=== PATIENT | female | born 1980 | race Caucasian/White ===

== ENCOUNTER 2016-08-28 22:02 | Emergency (ER) | payer SELFPAY ==
[2016-08-28 22:04] VITALS: BP 134/68; PULSE 90; RESP 16; TEMP 98.7; O2SAT 96
[2016-08-28] MEDS ORDERED: TETANUS/DIPHTHERIA TOXOID ADULT 0.5 ML VIAL IM ONE (23:45)
[2016-08-28] MEDS ORDERED: TOBRAMYCIN SULF 0.3% OPHT SOLN 5 ML BTL RIGHT EYE ONE (23:45)
[2016-08-28] MEDS ORDERED: PROPARACAINE HCL 0.5% OPHT SOLN 15 ML BTL RIGHT EYE ONE (23:45)
[2016-08-28] MEDS ORDERED: ACETAMINOPHEN/HYDROcodone 325 MG/5 MG TAB PO ONE (23:45)
[2016-08-28] MEDS ORDERED: TOBR0.3S RIGHT EYE (23:46)
--- NOTE | 2016-08-28 23:46 | PD ---
HPI Chief Complaint: Foreign Body Time Seen by Provider: 23:42 Travel History International Travel<30 days: No Contact w/Intl Traveler<30days: No Traveled to known affect area: No History of Present Illness HPI 36-year-old white female presents to emergency Department with complaints of right eye pain. She states that she's been having pain in her right eye after doing spackle work on her ceiling one week ago. She states that she had gotten something in her right eye. She states that it had seemed to work its way out on its own. She states that 1-2 days later her right eye started to bother her. There has progressively gotten worse. She has foreign body sensation, swelling, redness, tearing. Positive photosensitivity. Positive burning. No diplopia. No matting. She does not wear glasses or contacts. She is not up-to -date with immunizations. She states that she came in tonight because she could not tolerate the discomfort any longer. She has not seen her primary care doctor nor has she seen a eye doctor yet. PFSH Past Medical History Narrative Medical Spontaneous pneumothorax, Fibromyalgia, renal stent, renal failure, hypertension Cardiovascular Problems: Yes Chest Pain: Yes Diabetes: No Diminished Hearing: No Fibromyalgia: Yes Hypertension: Yes Respiratory: Yes (PNEUMOTHORAX) Immunizations Current: Yes Renal Failure: Yes (WHILE ) Tetanus Vaccination: > 5 Years Influenza Vaccination: No ?: Unknown LMP: 1 WEEK AGO : 4 Para: 3 Miscarriage: 1 Past Surgical History Section: Yes (X2) Genitourinary Surgery: Yes (STENTS IN KIDNEYS) Thoracic Surgery: Yes (CHEST TUBE) Family History Family Hypercholesterolemia: Yes Social History Alcohol Use: Yes Tobacco Use: Yes (1-2 PPD) Substance Use: Yes (HX OF) Allergies-Medications (Allergen,Severity, Reaction): Coded Allergies: Amoxicillin (Verified Allergy, Intermediate, SEVERE STOMACH CRAMPING, 08/28) Reported Meds & Prescriptions Reported Meds & Active Scripts Active Cyclogyl Opth Drops (Cyclopentolate HCl) 1% Soln 1 Drop RIGHT EYE BID Tobrex Opth Drops (Tobramycin Opth Drops) 0.3 % Soln 1 Drop RIGHT EYE Q6H Review of Systems Except as stated in HPI: all other systems reviewed are Neg General / Constitutional: No: Fever, Chills Eyes: Positive: Blurred Vision, Photophobia, Redness, Foreign Body Sensation, Pain, Tearing, Visual changes, No: Diploplia, Drainage HENT: Positive: Headaches, No: Sore Throat Cardiovascular: No: Chest Pain or Discomfort, Palpitations Respiratory: No: Cough, Shortness of Breath Physical Exam Narrative GENERAL: Well-developed, well-nourished in no acute distress. Nontoxic appearing. HEAD: Normocephalic, atraumatic. EYES: Pupils equal round and reactive. Extraocular motions intact. No scleral icterus. No injection or drainage in the left eye. The right eye is injected. There is some chemotic swelling of the sclera. Slight tearing. Fluorescein stain reveals no obvious corneal abrasion. She has mild superficial uptake both on the nasal and temporal aspects of the sclera. Lids are flipped and no foreign body seen. ENT: TMs clear without erythema. The external auditory canals clear. Nose: clear . Posterior pharynx is pink and moist. No tonsillar edema or exudate. Uvula midline. Airway patent. NECK: Trachea midline.Supple, nontender, moves head freely. No central bony tenderness or spasm. CARDIOVASCULAR: Regular rate and rhythm without murmurs, gallops, or rubs. RESPIRATORY: Clear to auscultation. Breath sounds equal bilaterally. No wheezes , rales, or rhonchi. GASTROINTESTINAL: Abdomen soft, non-tender, nondistended. No hepato-splenomegaly , or palpable masses. No guarding. EXTREMITIES: No clubbing, cyanosis, or edema. No joint tenderness, effusion, or edema noted. BACK: Nontender without deformity or crepitance. No flank tenderness. Data Data Last Documented VS Vital Signs Date Time Temp Pulse Resp B/P Pulse Ox O2 Delivery O2 Flow Rate FiO2 08/28/16 22:04 98.7 90 16 134/68 96 Orders Proparacaine 0.5% Opth Soln (Alcaine 0.5 (08/28/16 23:45) Tetanus/Diphtheria Tox Adult (Tetanus/Di (08/28/16 23:45) Acetamin-Hydrocod 325-5 Mg (Linwood 5-325 (08/28/16 23:45) Tobramycin 0.3% Opth Soln (Tobrex 0.3% O (08/28/16 23:45) Ondansetron Odt (Zofran Odt) (08/29/16 00:15) MDM Medical Decision Making Medical Screen Exam Complete: Yes Emergency Medical Condition: Yes Medical Record Reviewed: Yes Differential Diagnosis MDM: High Differential diagnoses: Acute conjunctivitis (bacterial, viral, allergic, traumatic), glaucoma, iritis, traumatic globe injury, foreign body, corneal abrasion, corneal ulcer, diabetic retinopathy, photokeratitis, herpes keratitis , CMV retinitis Narrative Course Patient's tetanus status updated. Alcaine is instilled in left eye. Tobramycin ophthalmic drops to the left eye. Lortab 5 a grams by mouth. I see no foreign body or ulceration. No corneal abrasion. Visual acuity noted on nursing chart. 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 Cool compresses. Tobramycin and Cyclogyl ophthalmic drops. Followup with an eye doctor in 1-2 days. Follow-up with a medical doctor one week. Return to the ER if any problems. Med/Other Pt SpecificInfo: Prescription(s) given Scripts Cyclopentolate Opth Drops (Cyclogyl Opth Drops)1% Soln1 Drop RIGHT EYE BID #1 ML Ref 0 Prov:Toni Elizabeth MD 08/29/16 Tobramycin Opth Drops (Tobrex Opth Drops)0.3 % Soln1 Drop RIGHT EYE Q6H #1 BOTTLE Prov:Toni Elizaebth MD 08/28/16 Disposition: 01 DISCHARGE HOME Condition: Stable Patricio Salas Aug 28, 2016 23:46
[2016-08-29] MEDS ORDERED: CYCL1%O RIGHT EYE (00:03)
[2016-08-29] MEDS ORDERED: ONDANSETRON ODT 4 MG TAB PO ONE (00:15)
== END 2016-08-29 00:36 | disposition home or self-care (01) ==
LOC: NEPD 22:02
DX: H15.001 Unspecified scleritis, right eye (principal); M79.7 Fibromyalgia; I10 Essential (primary) hypertension; F17.210 Nicotine dependence, cigarettes, uncomplicated; H20.9 Unspecified iridocyclitis; Z23 Encounter for immunization
CPT/HCPCS: 90471; 90714

== ENCOUNTER 2016-09-05 02:55 | Emergency (ER) | payer SELFPAY ==
[~2016-09-05] VITALS: Ht 152.4 cm; Wt 50.0 kg
[~2016-09-05 02:55] MED LIST: CYCL1%O RIGHT EYE; TOBR0.3S RIGHT EYE
[2016-09-05 02:58] VITALS: BP 109/55; PULSE 71; RESP 16; TEMP 98; O2SAT 96
[2016-09-05] MEDS ORDERED: ACETAMINOPHEN/HYDROcodone 325 MG/5 MG TAB PO ONE (03:15)
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
== END 2016-09-05 04:21 | disposition home or self-care (01) ==
LOC: NEPD 02:55
DX: R51 Headache (principal); M79.7 Fibromyalgia; I10 Essential (primary) hypertension; F17.210 Nicotine dependence, cigarettes, uncomplicated; S02.81XA Fracture of other specified skull and facial bones, right side, initial encounter for closed fracture; W50.0XXA Accidental hit or strike by another person, initial encounter; Y93.9 Activity, unspecified; Y92.9 Unspecified place or not applicable; Y99.9 Unspecified external cause status
CPT/HCPCS: 99283

== ENCOUNTER 2016-10-22 07:02 | Emergency (ER) | payer SELFPAY ==
[~2016-10-22] VITALS: Ht 162.6 cm; Wt 53.0 kg
[2016-10-22 07:11] VITALS: BP 154/86; PULSE 123; RESP 16; TEMP 98.9; O2SAT 96
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
[2016-10-22] MEDS ORDERED: SODIUM CHLOR 0.9% 1000 ML INJ 1,000 ML IV ONE (07:30)
[2016-10-22] MEDS ORDERED: diphenhydrAMINE HCL 25 MG CAP PO ONE (07:30)
[2016-10-22 07:48] LABS: AUTOMATED NEUTROPHIL # 8.7 TH/MM3 (1.8-7.7); BASOPHIL % 0.3 % (0.0-2.0); EOSINOPHIL % 0.1 % (0.0-4.0); HEMATOCRIT 38.9 % (35.0-46.0); HEMO FLAGS DIFF FINAL; LYMPH % 9.9 % (9.0-44.0); MEAN CELL VOLUME 79.8 FL (80.0-100.0); MEAN CORPUSCULAR HEMOGLOBIN 25.7 PG (27.0-34.0); MEAN CORPUSCULAR HGB CONC 32.3 % (32.0-36.0); MONO % 5.5 % (0.0-8.0); NEUT % 84.2 % (16.0-70.0); PLATELET COUNT 252 TH/MM3 (150-450); RED BLOOD COUNT 4.88 MIL/MM3 (4.00-5.30); RED CELL DISTRIBUTION WIDTH 17.1 % (11.6-17.2); WHITE BLOOD COUNT 10.3 TH/MM3 (4.0-11.0)
[2016-10-22 08:35] LABS: ALT (GPT) 21 U/L (10-53); ANION GAP 10 MEQ/L (5-15); AST (GOT) 23 U/L (15-37); BICARBONATE 22.3 MEQ/L (21.0-32.0); BLOOD UREA NITROGEN 15 MG/DL (7-18); CHLORIDE 103 MEQ/L (98-107); GLOMERULAR FILTRATION RATE 45 ML/MIN (>89); SODIUM (NA) 135 MEQ/L (136-145)
[2016-10-22 08:44] LABS: ALKALINE PHOSPHATASE 124 U/L (45-117); TOTAL BILIRUBIN ADULT 0.3 MG/DL (0.2-1.0)
[2016-10-22 09:30] VITALS: BP 151/72; PULSE 120; RESP 18; TEMP 99.2; O2SAT 96
[2016-10-22] MEDS ORDERED: NICOTINE 21 MG/24 HR PATCH T-DERMAL ONE (10:15)
[2016-10-22 13:13] VITALS: BP 116/76; PULSE 104; RESP 18; O2SAT 98
[2016-10-22 14:00] VITALS: BP 112/57; PULSE 98; RESP 18; O2SAT 98
[2016-10-22 18:00] VITALS: BP 109/58; PULSE 99; RESP 18
[2016-10-22] MEDS ORDERED: diphenhydrAMINE HCL 50 MG CAP PO ONE (23:00)
[2016-10-22 23:09] VITALS: BP 109/58; PULSE 94; RESP 18; O2SAT 98
[2016-10-23 02:31] VITALS: RESP 18
[2016-10-23 06:55] VITALS: BP 118/71; PULSE 87; RESP 18; O2SAT 99
[2016-10-23 09:25] LABS: BARBITURATES, URINE NEG (NEG); COCAINE, URINE POS (NEG)
[2016-10-23 09:27] LABS: AMPHETAMINE, URINE POS (NEG)
--- NOTE | 2016-10-23 09:55 | PD.CONS ---
Provisional Diagnosis Admission Date 10/22/2016 [place] I. 1. Polysubstance abuse including amphetamines and cocaine 2. Unspecified anxiety disorder Welches II. Deferred History of Present Illness Service Psychiatry Consult Requested By Emergency department Reason for Consult Hurd act Primary Care Physician No Primary Care Physician HPI Ms. Carpenter is a 36-year-old female with reported history of substance use disorder who presents under a Hurd act by law enforcement alleging psychotic symptoms. Reviewing the electronic medical record, I note that I saw the patient last August for a drug induced psychotic disorder. Patient seen and examined. Chart reviewed. Case discussed with nursing staff. On my examination this morning, the patient is clinically sober. Her thought process is linear and logical and there is no evidence of psychosis at this time. She says that she has relapsed to amphetamines and that anytime she uses these substances she becomes psychotic and ends up here. Presently she denies any audiovisual hallucinations, and I can elicit no delusional material. She denies any issues with low mood or elevated mood, nor can I elicit any depressive or hypomanic/manic symptoms. She denies any suicidal or homicidal ideation, intent or plan. She does admit to some occasional anxiety and panic, but it is difficult to isolate these symptoms from her substance use. The remainder of the psychiatric ROS is negative. The patient is requesting discharge from the psychiatric emergency room this morning. Past psychiatric history: The patient is not presently under the care of an outpatient psychiatrist. She was admitted here under Dr. Funes in June 2015. She denies any other history of psychiatric admissions. Denies a history of suicide attempts. Family history: Patient denies any family history of mental illness. Chemical dependency history: The patient reports a history of opiate abuse. More recently, she has been abusing amphetamines. No explanation for the cocaine in her urine. Social history: Patient reports that she has gotten a new job. She will start this job on Monday. 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 She has been from her for 4 years. She has 3 children who live with their grandmother. No legal history. No access to guns or firearms. Review of Systems Except as stated in HPI: all other systems reviewed are Neg Past Family Social History Coded Allergies: Amoxicillin (Verified Allergy, Intermediate, SEVERE STOMACH CRAMPING, 10/22) Past Medical History See EMR Discontinued Scripts Cyclopentolate Opth Drops (Cyclogyl Opth Drops)1% Soln1 Drop RIGHT EYE BID #1 ML Ref 0 Prov:Toni Elizabeth MD 08/29/16 Tobramycin Opth Drops (Tobrex Opth Drops)0.3 % Soln1 Drop RIGHT EYE Q6H #1 BOTTLE Prov:Toni Elizabeth MD 08/28/16 Patient's Strengths (min. 2) Attending to basic needs. Verbally fluent. Physical Exam Physical exam completed by ED provider. On my examination today, the patient appears to be in no acute physical distress. Attending to basic needs. Well- nourished and well-developed. No abnormal motor movements noted. Laboratories and vital signs reviewed: Vital Signs Vital Signs Date Time Temp Pulse Resp B/P Pulse Ox O2 Delivery O2 Flow Rate FiO2 10/23/16 06:55 87 18 118/71 99 10/22/16 14:00 Room Air 10/22/16 09:30 99.2 Lab Results Item Value Date Time White Blood Count 10.3 TH/MM3 10/22/16 0730 Hemoglobin 12.6 GM/DL 10/22/16 0730 Platelet Count 252 TH/MM3 10/22/16 0730 Sodium Level 135 MEQ/L L 10/22/16 0730 Potassium Level 4.0 MEQ/L 10/22/16 0730 Chloride Level 103 MEQ/L 10/22/16 0730 Carbon Dioxide Level 22.3 MEQ/L 10/22/16 0730 Blood Urea Nitrogen 15 MG/DL 10/22/16 0730 Creatinine 1.36 MG/DL H 10/22/16 0730 Aspartate Amino Transf (AST/SGOT) 23 U/L 10/22/16 0730 Alanine Aminotransferase (ALT/SGPT) 21 U/L 10/22/16 0730 Alkaline Phosphatase 124 U/L H 10/22/16 0730 Thyroid Stimulating Hormone 3rd Gen 1.670 uIU/ML 10/22/16 0730 Urine Amphetamines Screen POS H 10/23/16 0810 Urine Cocaine Screen POS H 10/23/16 0810 Ethyl Alcohol Level LESS THAN 3 MG/DL 10/22/16 0730 Mental Status Examination Patient is in hospital gown. She is well groomed. She is maintaining basic hygiene. She is awake and alert and oriented to person and hospital at least. No evidence of delirium. No abnormal motor movements noted. Speech is within normal limits for rate, tone and volume. Language and fund of knowledge seem average. Focus and concentration intact. Memory is grossly intact on clinical exam. Mood is fair and affect is full and reactive. Thought process linear. No loosening of associations. No evident delusions. Denies audiovisual hallucinations. Denies suicidal or homicidal ideation, intent or plan. Insight and judgment are fair. Assessment & Plan Problem List: (1) Polysubstance abuse ICD Code: F19.10 (2) Anxiety disorder ICD Code: F41.9 Assessment & Plan This is a 36-year-old female with psychiatric history as detailed above who presents under a Hurd act. Patient has a history of drug induced psychotic disorder, and I suspect that she was experiencing something similar on this presentation. Currently, her thought process is linear and logical and there is no evidence of ongoing psychosis. There is no evidence of any unstable mood disorder. The patient does describe some degree of anxiety which may be related to substance use or may be secondary to an underlying anxiety disorder. In any event, patient is presently denying suicidal or homicidal ideation. She appears to be attending to her basic needs. She does not meet Hurd act criteria after weighing the relevant factors and I have lifted the Hurd act. Patient psychiatrically clear for discharge from the ED. She will be provided with outpatient mental health referrals by the nurse. I have counseled the patient to abstain from substances of abuse and encouraged 12- step. I have counseled the patient regarding warning signs for me to return to the psychiatric emergency room as part of a general safety plan. Request HC Surrog/Guard Advoc?: No Problem Qualifiers (1) Anxiety disorder: Qualified Code: F41.9 - Anxiety disorder, unspecified type Олег Cox MD Oct 23, 2016 09:55
== END 2016-10-23 10:40 | disposition home or self-care (01) ==
LOC: NEPE 07:02 → NEPJ 10-23 10:40
DX: F19.950 Other psychoactive substance use, unspecified with psychoactive substance-induced psychotic disorder with delusions (principal); F17.200 Nicotine dependence, unspecified, uncomplicated; F41.9 Anxiety disorder, unspecified; I10 Essential (primary) hypertension
CPT/HCPCS: 80053; 80307; 84443; 85025; 99284; Q0163

== ENCOUNTER 2017-03-11 01:47 | Inpatient (IN) | payer OTHER ==
[2017-03-11] VITALS (21 sets, daily range): BP systolic 93–156; BP diastolic 54–100; PULSE 65–142; RESP 14–24; TEMP 97.9–99.2; O2SAT 96–100
[~2017-03-11] VITALS: Ht 162.6 cm; Wt 54.4 kg
[2017-03-11] MEDS ORDERED: SODIUM CHLOR 0.9% 1000 ML INJ 1,000 ML IV ONE (01:55)
[2017-03-11] MEDS ORDERED: LORazepam 2 MG/ML VIAL IV PUSH ONE ×2 (02:00→03:45)
[2017-03-11] MEDS ORDERED: SODIUM CHLORIDE 0.9% FLUSH 10 ML FLUSH IVF PRN (02:00)
--- NOTE | 2017-03-11 02:39 | PD ---
HPI Chief Complaint: Alcohol/Drug Intoxication Time Seen by Provider: 01:55 Travel History International Travel<30 days: No Contact w/Intl Traveler<30days: No Traveled to known affect area: No History of Present Illness HPI 36-year-old female presents to the emergency department by [facility] department for altered mental status and admitting to using methamphetamine and flakka. Patient is unable to provide other information or history. No report of injury or fall. Patient unable to provide any further information. [facility] Past Medical History Narrative Medical review of medical record and nursing noted identify patient has history of fibromyalgia hypertension pneumothorax chest tube ; alcohol use tobacco use methamphetamine use floppy use; nursing notes reviewed Cardiovascular Problems: Yes Chest Pain: Yes Diabetes: No Diminished Hearing: No Fibromyalgia: Yes Hypertension: Yes Respiratory: Yes (PNEUMOTHORAX) Immunizations Current: Yes Renal Failure: Yes (WHILE ) ?: Unknown : 4 Para: 3 Miscarriage: 1 Past Surgical History Section: Yes (X2) Genitourinary Surgery: Yes (STENTS IN KIDNEYS) Thoracic Surgery: Yes (CHEST TUBE) Family History Family Hypercholesterolemia: Yes Social History Alcohol Use: Yes Tobacco Use: Yes (1-2 PPD) Substance Use: Yes (METH, FLAKKA) Allergies-Medications (Allergen,Severity, Reaction): Coded Allergies: amoxicillin (Unverified Allergy, Intermediate, SEVERE STOMACH CRAMPING, ) Reported Meds & Prescriptions Reported Meds & Active Scripts Active No Active Prescriptions or Reported Medications Review of Systems ROS Limitations: Clinical Condition, Altered Mental Status, Poor Historian Except as stated in HPI: all other systems reviewed are Neg Physical Exam Narrative GENERAL: Well-developed well-nourished female combative fighting with medical staff requiring physical restraint and violent restraint application to protect patient from harming herself SKIN: Warm and dry. Diaphoretic HEAD: Normocephalic. Atraumatic without scalp soft tissue swelling or hematoma abrasion or laceration EYES: No scleral icterus. No injection or drainage. Pupils equal round reactive to light NECK: Supple, trachea midline. No JVD or lymphadenopathy. CARDIOVASCULAR: Increased Regular rate and rhythm without murmurs, gallops, or rubs. RESPIRATORY: Breath sounds equal bilaterally. No accessory muscle use. GASTROINTESTINAL: Abdomen soft, non-tender, nondistended. MUSCULOSKELETAL: No cyanosis, or edema. BACK: Nontender without obvious deformity. No CVA tenderness. Data Data Last Documented VS Vital Signs Date Time Temp Pulse Resp B/P (MAP) Pulse Ox O2 Delivery O2 Flow Rate FiO2 03/11/17 06:38 118 18 129/63 (85) 100 03/11/17 06:35 15.00 03/11/17 05:21 Room Air 03/11/17 01:54 99.2 Orders Orders Electrocardiogram (03/11/17 01:55) Basic Metabolic Panel (Bmp) (03/11/17 01:55) Complete Blood Count With Diff (03/11/17 01:55) Prothrombin Time / Inr (Pt) (03/11/17 01:55) Act Partial Throm Time (Ptt) (03/11/17 01:55) Urinalysis - C+S If Indicated (03/11/17 01:55) Chest, Single Ap (03/11/17 01:55) Blood Glucose (03/11/17 01:55) Iv Access Insert/Monitor (03/11/17 01:55) Ecg Monitoring (03/11/17 01:55) Oximetry (03/11/17 01:55) Sodium Chloride 0.9% Flush (Ns Flush) (03/11/17 02:00) Sodium Chlor 0.9% 1000 Ml Inj (Ns 1000 M (03/11/17 01:55) Drug Screen, Random Urine (03/11/17 01:55) Alcohol (Ethanol) (03/11/17 01:55) Salicylates (Aspirin) (03/11/17 01:55) Tylenol (Acetaminophen) (03/11/17 01:55) Restraints Violent (03/11/17 01:55) Lorazepam Inj (Ativan Inj) (03/11/17 02:00) Cath For Specimen (03/11/17 02:35) Lorazepam Inj (Ativan Inj) (03/11/17 03:45) Lorazepam Inj (Ativan Inj) (03/11/17 03:38) Haloperidol Inj (Haldol Inj) (03/11/17 04:45) Ct Brain W/O Iv Contrast(Rout) (03/11/17 ) Ed Urine Pregnancytest Poc (03/11/17 05:36) Propofol 1000 Mg/100 Ml Inj (Diprivan 10 (03/11/17 05:57) Midazolam Inj (Versed Inj) (03/11/17 06:31) Midazolam Inj (Versed Inj) (03/11/17 06:38) Admit Order (Ed Use Only) (03/11/17 ) Training Analyst / Telemetry DAMI.Q8H (03/11/17 06:39) Diet Npo (03/11/17 Breakfast) Activity Bed Rest (03/11/17 06:39) Notify Dr: Other (03/11/17 06:39) Labs Laboratory Tests Test 03/11/17 02:30 White Blood Count 15.1 TH/MM3 Red Blood Count 5.09 MIL/MM3 Hemoglobin 12.5 GM/DL Hematocrit 39.9 % Mean Corpuscular Volume 78.4 FL Mean Corpuscular Hemoglobin 24.5 PG Mean Corpuscular Hemoglobin Concent 31.3 % Red Cell Distribution Width 17.0 % Platelet Count 346 TH/MM3 Mean Platelet Volume 9.9 FL Neutrophils (%) (Auto) 56.8 % Lymphocytes (%) (Auto) 32.8 % Monocytes (%) (Auto) 8.9 % Eosinophils (%) (Auto) 0.9 % Basophils (%) (Auto) 0.6 % Neutrophils # (Auto) 8.6 TH/MM3 Lymphocytes # (Auto) 4.9 TH/MM3 Monocytes # (Auto) 1.3 TH/MM3 Eosinophils # (Auto) 0.1 TH/MM3 Basophils # (Auto) 0.1 TH/MM3 CBC Comment DIFF FINAL Differential Comment Prothrombin Time 10.5 SEC Prothromb Time International Ratio 1.0 RATIO Activated Partial Thromboplast Time 22.2 SEC Urine Color YELLOW Urine Turbidity CLEAR Urine pH 5.5 Urine Specific [place] 1.021 Urine Protein TRACE mg/dL Urine Glucose (UA) NEG mg/dL Urine Ketones TRACE mg/dL Urine Occult Blood NEG Urine Nitrite NEG Urine Bilirubin NEG Urine Urobilinogen 2.0 MG/DL Urine Leukocyte Esterase NEG Urine RBC 3 /hpf Urine WBC 1 /hpf Urine Squamous Epithelial Cells 1 /hpf Urine Hyaline Casts 47 /lpf Urine Mucus FEW /lpf Microscopic Urinalysis Comment CULT NOT INDICATED Blood Urea Nitrogen 15 MG/DL Creatinine 1.18 MG/DL Random Glucose 213 MG/DL Calcium Level 9.0 MG/DL Sodium Level 140 MEQ/L Potassium Level 4.4 MEQ/L Chloride Level 106 MEQ/L Carbon Dioxide Level 18.1 MEQ/L Anion Gap 16 MEQ/L Estimat Glomerular Filtration Rate 52 ML/MIN Salicylates Level 6.6 MG/DL Urine Opiates Screen POS Acetaminophen Level LESS THAN 2.0 MCG/ML Urine Barbiturates Screen NEG Urine Amphetamines Screen POS Urine Benzodiazepines Screen NEG Urine Cocaine Screen NEG Urine Cannabinoids Screen POS Ethyl Alcohol Level LESS THAN 3 MG/DL MDM Medical Decision Making Medical Screen Exam Complete: Yes Emergency Medical Condition: Yes Medical Record Reviewed: Yes Interpretation(s) EKG: Sinus tachycardia rate [address] elevation or injury pattern change noted Urine drug screen amphetamines marijuana opiates Last Impressions Chest X-Ray 03/11/17 0155 Signed Impressions: Service Date/Time: Saturday, March 11, 2017 02:13 - CONCLUSION: No acute cardiopulmonary disease identified. Roberto Schmitt MD Chest X-Ray 03/11/17 0000 Signed Impressions: Service Date/Time: Saturday, March 11, 2017 07:56 - CONCLUSION: 1. ETT in good position. NGT just be on the GE junction with side hole in the distal esophagus. 2. Otherwise, no acute abnormality or significant interval change. Zane Schwartz MD CBC & BMP Diagram 03/11/17 02:30 Calcium Level 9.0 Alcohol: Less than 3 [id number] hCG: Negative Differential Diagnosis Polysubstance ingestion, acute psychosis, altered mental status, metabolic disturbance, substance induced mood disorder Narrative Course Physical restraints placed to protect patient from harming herself and others; IV access obtained specimens collected and sent for resulting; patient administered Ativan 2 mg IV Patient given additional Ativan and Haldol to control agitation Patient remains agitated after fluids observation and oral doses of Ativan and a single dose of Haldol patient is not able to resolve her ingestant overdose and substance induced altered mentation/encephalopathy during her stay in the emergency department and will require admission at this time patient will be intubated and admitted to the ICU call placed to district wildlife manager Briefly discussed case with who accepts patient for admission is aware of plan for intubation Dr. Armstrong district wildlife manager at bedside well intubate patient due to being called to bedside of another patient. Patient is graciously accepted by the district wildlife manager service Critical Care Narrative Aggregate critical care time was minutes. Time to perform other separately billable procedures was not included in the critical care time. My time did not include minutes spent treating any other patients simultaneously or on activities that did not directly contribute to the patient's treatment. The services I provided to this patient were to treat and/or prevent clinically significant deterioration that could result in: Arrhythmia, respiratory arrest, I provided critical care services requiring my management, as noted below: Chart data review, documentation time, medication orders and management, vital sign assessments/reviewing monitor data, ordering and reviewing lab tests, ordering and interpreting/reviewing x-rays and diagnostic studies, care of the patient and discussion of the patient with the admitting physicians. Physician Communication Physician Communication Discussed with district wildlife manager for admission Diagnosis Primary Impression: Drug-induced psychotic disorder Additional Impressions: Toxic metabolic encephalopathy Polysubstance abuse Renal insufficiency Leukocytosis, unspecified Admitting Information Admitting Physician Requests: Admit Scripts No Active Prescriptions or Reported Meds Yari Elizondo MD Mar 11, 2017 02:39
--- NOTE | 2017-03-11 02:39 | PD ---
HPI Chief Complaint: Alcohol/Drug Intoxication Time Seen by Provider: 01:55 Travel History International Travel<30 days: No Contact w/Intl Traveler<30days: No Traveled to known affect area: No History of Present Illness HPI 36-year-old female presents to the emergency department by [facility] department for altered mental status and admitting to using methamphetamine and flakka. Patient is unable to provide other information or history. No report of injury or fall. Patient unable to provide any further information. [facility] Past Medical History Narrative Medical review of medical record and nursing noted identify patient has history of fibromyalgia hypertension pneumothorax chest tube ; alcohol use tobacco use methamphetamine use floppy use; nursing notes reviewed Cardiovascular Problems: Yes Chest Pain: Yes Diabetes: No Diminished Hearing: No Fibromyalgia: Yes Hypertension: Yes Respiratory: Yes (PNEUMOTHORAX) Immunizations Current: Yes Renal Failure: Yes (WHILE ) ?: Unknown : 4 Para: 3 Miscarriage: 1 Past Surgical History Section: Yes (X2) Genitourinary Surgery: Yes (STENTS IN KIDNEYS) Thoracic Surgery: Yes (CHEST TUBE) Family History Family Hypercholesterolemia: Yes Social History Alcohol Use: Yes Tobacco Use: Yes (1-2 PPD) Substance Use: Yes (METH, FLAKKA) Allergies-Medications (Allergen,Severity, Reaction): Coded Allergies: amoxicillin (Unverified Allergy, Intermediate, SEVERE STOMACH CRAMPING, ) Reported Meds & Prescriptions Reported Meds & Active Scripts Active No Active Prescriptions or Reported Medications Review of Systems ROS Limitations: Clinical Condition, Altered Mental Status, Poor Historian Except as stated in HPI: all other systems reviewed are Neg Physical Exam Narrative GENERAL: Well-developed well-nourished female combative fighting with medical staff requiring physical restraint and violent restraint application to protect patient from harming herself SKIN: Warm and dry. Diaphoretic HEAD: Normocephalic. Atraumatic without scalp soft tissue swelling or hematoma abrasion or laceration EYES: No scleral icterus. No injection or drainage. Pupils equal round reactive to light NECK: Supple, trachea midline. No JVD or lymphadenopathy. CARDIOVASCULAR: Increased Regular rate and rhythm without murmurs, gallops, or rubs. RESPIRATORY: Breath sounds equal bilaterally. No accessory muscle use. GASTROINTESTINAL: Abdomen soft, non-tender, nondistended. MUSCULOSKELETAL: No cyanosis, or edema. BACK: Nontender without obvious deformity. No CVA tenderness. Data Data Last Documented VS Vital Signs Date Time Temp Pulse Resp B/P (MAP) Pulse Ox O2 Delivery O2 Flow Rate FiO2 03/11/17 06:38 118 18 129/63 (85) 100 03/11/17 06:35 15.00 03/11/17 05:21 Room Air 03/11/17 01:54 99.2 Orders Orders Electrocardiogram (03/11/17 01:55) Basic Metabolic Panel (Bmp) (03/11/17 01:55) Complete Blood Count With Diff (03/11/17 01:55) Prothrombin Time / Inr (Pt) (03/11/17 01:55) Act Partial Throm Time (Ptt) (03/11/17 01:55) Urinalysis - C+S If Indicated (03/11/17 01:55) Chest, Single Ap (03/11/17 01:55) Blood Glucose (03/11/17 01:55) Iv Access Insert/Monitor (03/11/17 01:55) Ecg Monitoring (03/11/17 01:55) Oximetry (03/11/17 01:55) Sodium Chloride 0.9% Flush (Ns Flush) (03/11/17 02:00) Sodium Chlor 0.9% 1000 Ml Inj (Ns 1000 M (03/11/17 01:55) Drug Screen, Random Urine (03/11/17 01:55) Alcohol (Ethanol) (03/11/17 01:55) Salicylates (Aspirin) (03/11/17 01:55) Tylenol (Acetaminophen) (03/11/17 01:55) Restraints Violent (03/11/17 01:55) Lorazepam Inj (Ativan Inj) (03/11/17 02:00) Cath For Specimen (03/11/17 02:35) Lorazepam Inj (Ativan Inj) (03/11/17 03:45) Lorazepam Inj (Ativan Inj) (03/11/17 03:38) Haloperidol Inj (Haldol Inj) (03/11/17 04:45) Ct Brain W/O Iv Contrast(Rout) (03/11/17 ) Ed Urine Pregnancytest Poc (03/11/17 05:36) Propofol 1000 Mg/100 Ml Inj (Diprivan 10 (03/11/17 05:57) Midazolam Inj (Versed Inj) (03/11/17 06:31) Midazolam Inj (Versed Inj) (03/11/17 06:38) Admit Order (Ed Use Only) (03/11/17 ) Professor Of English / Telemetry DAMI.Q8H (03/11/17 06:39) Diet Npo (03/11/17 Breakfast) Activity Bed Rest (03/11/17 06:39) Notify Dr: Other (03/11/17 06:39) Labs Laboratory Tests Test 03/11/17 02:30 White Blood Count 15.1 TH/MM3 Red Blood Count 5.09 MIL/MM3 Hemoglobin 12.5 GM/DL Hematocrit 39.9 % Mean Corpuscular Volume 78.4 FL Mean Corpuscular Hemoglobin 24.5 PG Mean Corpuscular Hemoglobin Concent 31.3 % Red Cell Distribution Width 17.0 % Platelet Count 346 TH/MM3 Mean Platelet Volume 9.9 FL Neutrophils (%) (Auto) 56.8 % Lymphocytes (%) (Auto) 32.8 % Monocytes (%) (Auto) 8.9 % Eosinophils (%) (Auto) 0.9 % Basophils (%) (Auto) 0.6 % Neutrophils # (Auto) 8.6 TH/MM3 Lymphocytes # (Auto) 4.9 TH/MM3 Monocytes # (Auto) 1.3 TH/MM3 Eosinophils # (Auto) 0.1 TH/MM3 Basophils # (Auto) 0.1 TH/MM3 CBC Comment DIFF FINAL Differential Comment Prothrombin Time 10.5 SEC Prothromb Time International Ratio 1.0 RATIO Activated Partial Thromboplast Time 22.2 SEC Urine Color YELLOW Urine Turbidity CLEAR Urine pH 5.5 Urine Specific [place] 1.021 Urine Protein TRACE mg/dL Urine Glucose (UA) NEG mg/dL Urine Ketones TRACE mg/dL Urine Occult Blood NEG Urine Nitrite NEG Urine Bilirubin NEG Urine Urobilinogen 2.0 MG/DL Urine Leukocyte Esterase NEG Urine RBC 3 /hpf Urine WBC 1 /hpf Urine Squamous Epithelial Cells 1 /hpf Urine Hyaline Casts 47 /lpf Urine Mucus FEW /lpf Microscopic Urinalysis Comment CULT NOT INDICATED Blood Urea Nitrogen 15 MG/DL Creatinine 1.18 MG/DL Random Glucose 213 MG/DL Calcium Level 9.0 MG/DL Sodium Level 140 MEQ/L Potassium Level 4.4 MEQ/L Chloride Level 106 MEQ/L Carbon Dioxide Level 18.1 MEQ/L Anion Gap 16 MEQ/L Estimat Glomerular Filtration Rate 52 ML/MIN Salicylates Level 6.6 MG/DL Urine Opiates Screen POS Acetaminophen Level LESS THAN 2.0 MCG/ML Urine Barbiturates Screen NEG Urine Amphetamines Screen POS Urine Benzodiazepines Screen NEG Urine Cocaine Screen NEG Urine Cannabinoids Screen POS Ethyl Alcohol Level LESS THAN 3 MG/DL MDM Medical Decision Making Medical Screen Exam Complete: Yes Emergency Medical Condition: Yes Medical Record Reviewed: Yes Interpretation(s) EKG: Sinus tachycardia rate [address] elevation or injury pattern change noted Urine drug screen amphetamines marijuana opiates Last Impressions Chest X-Ray 03/11/17 0155 Signed Impressions: Service Date/Time: Saturday, March 11, 2017 02:13 - CONCLUSION: No acute cardiopulmonary disease identified. Roberto Schmitt MD Chest X-Ray 03/11/17 0000 Signed Impressions: Service Date/Time: Saturday, March 11, 2017 07:56 - CONCLUSION: 1. ETT in good position. NGT just be on the GE junction with side hole in the distal esophagus. 2. Otherwise, no acute abnormality or significant interval change. Zane Schwartz MD CBC & BMP Diagram 03/11/17 02:30 Calcium Level 9.0 Alcohol: Less than 3 [id number]-[id number] hCG: Negative Differential Diagnosis Polysubstance ingestion, acute psychosis, altered mental status, metabolic disturbance, substance induced mood disorder Narrative Course Physical restraints placed to protect patient from harming herself and others; IV access obtained specimens collected and sent for resulting; patient administered Ativan 2 mg IV Patient given additional Ativan and Haldol to control agitation Patient remains agitated after fluids observation and oral doses of Ativan and a single dose of Haldol patient is not able to resolve her ingestant overdose and substance induced altered mentation/encephalopathy during her stay in the emergency department and will require admission at this time patient will be intubated and admitted to the ICU call placed to lock and dam equipment repairer Briefly discussed case with who accepts patient for admission is aware of plan for intubation Dr. Armstrong lock and dam equipment repairer at bedside well intubate patient due to being called to bedside of another patient. Patient is graciously accepted by the lock and dam equipment repairer service Critical Care Narrative Aggregate critical care time was minutes. Time to perform other separately billable procedures was not included in the critical care time. My time did not include minutes spent treating any other patients simultaneously or on activities that did not directly contribute to the patient's treatment. The services I provided to this patient were to treat and/or prevent clinically significant deterioration that could result in: Arrhythmia, respiratory arrest, I provided critical care services requiring my management, as noted below: Chart data review, documentation time, medication orders and management, vital sign assessments/reviewing monitor data, ordering and reviewing lab tests, ordering and interpreting/reviewing x-rays and diagnostic studies, care of the patient and discussion of the patient with the admitting physicians. Physician Communication Physician Communication Discussed with lock and dam equipment repairer for admission Diagnosis Primary Impression: Drug-induced psychotic disorder Additional Impressions: Toxic metabolic encephalopathy Polysubstance abuse Renal insufficiency Leukocytosis, unspecified Admitting Information Admitting Physician Requests: Admit Scripts No Active Prescriptions or Reported Meds Yari Elizondo MD Mar 11, 2017 02:39
--- NOTE | 2017-03-11 02:39 | PD ---
HPI Chief Complaint: Alcohol/Drug Intoxication Time Seen by Provider: 01:55 Travel History International Travel<30 days: No Contact w/Intl Traveler<30days: No Traveled to known affect area: No History of Present Illness HPI 36-year-old female presents to the emergency department by [facility] department for altered mental status and admitting to using methamphetamine and flakka. Patient is unable to provide other information or history. No report of injury or fall. Patient unable to provide any further information. FORMERLY [facility], [facility]–1983 Past Medical History Narrative Medical review of medical record and nursing noted identify patient has history of fibromyalgia hypertension pneumothorax chest tube ; alcohol use tobacco use methamphetamine use floppy use; nursing notes reviewed Cardiovascular Problems: Yes Chest Pain: Yes Diabetes: No Diminished Hearing: No Fibromyalgia: Yes Hypertension: Yes Respiratory: Yes (PNEUMOTHORAX) Immunizations Current: Yes Renal Failure: Yes (WHILE ) ?: Unknown : 4 Para: 3 Miscarriage: 1 Past Surgical History Section: Yes (X2) Genitourinary Surgery: Yes (STENTS IN KIDNEYS) Thoracic Surgery: Yes (CHEST TUBE) Family History Family Hypercholesterolemia: Yes Social History Alcohol Use: Yes Tobacco Use: Yes (1-2 PPD) Substance Use: Yes (METH, FLAKKA) Allergies-Medications (Allergen,Severity, Reaction): Coded Allergies: amoxicillin (Unverified Allergy, Intermediate, SEVERE STOMACH CRAMPING, ) Reported Meds & Prescriptions Reported Meds & Active Scripts Active No Active Prescriptions or Reported Medications Review of Systems ROS Limitations: Clinical Condition, Altered Mental Status, Poor Historian Except as stated in HPI: all other systems reviewed are Neg Physical Exam Narrative GENERAL: Well-developed well-nourished female combative fighting with medical staff requiring physical restraint and violent restraint application to protect patient from harming herself SKIN: Warm and dry. Diaphoretic HEAD: Normocephalic. Atraumatic without scalp soft tissue swelling or hematoma abrasion or laceration EYES: No scleral icterus. No injection or drainage. Pupils equal round reactive to light NECK: Supple, trachea midline. No JVD or lymphadenopathy. CARDIOVASCULAR: Increased Regular rate and rhythm without murmurs, gallops, or rubs. RESPIRATORY: Breath sounds equal bilaterally. No accessory muscle use. GASTROINTESTINAL: Abdomen soft, non-tender, nondistended. MUSCULOSKELETAL: No cyanosis, or edema. BACK: Nontender without obvious deformity. No CVA tenderness. Data Data Last Documented VS Vital Signs Date Time Temp Pulse Resp B/P (MAP) Pulse Ox O2 Delivery O2 Flow Rate FiO2 03/11/17 06:38 118 18 129/63 (85) 100 03/11/17 06:35 15.00 03/11/17 05:21 Room Air 03/11/17 01:54 99.2 Orders Orders Electrocardiogram (03/11/17 01:55) Basic Metabolic Panel (Bmp) (03/11/17 01:55) Complete Blood Count With Diff (03/11/17 01:55) Prothrombin Time / Inr (Pt) (03/11/17 01:55) Act Partial Throm Time (Ptt) (03/11/17 01:55) Urinalysis - C+S If Indicated (03/11/17 01:55) Chest, Single Ap (03/11/17 01:55) Blood Glucose (03/11/17 01:55) Iv Access Insert/Monitor (03/11/17 01:55) Ecg Monitoring (03/11/17 01:55) Oximetry (03/11/17 01:55) Sodium Chloride 0.9% Flush (Ns Flush) (03/11/17 02:00) Sodium Chlor 0.9% 1000 Ml Inj (Ns 1000 M (03/11/17 01:55) Drug Screen, Random Urine (03/11/17 01:55) Alcohol (Ethanol) (03/11/17 01:55) Salicylates (Aspirin) (03/11/17 01:55) Tylenol (Acetaminophen) (03/11/17 01:55) Restraints Violent (03/11/17 01:55) Lorazepam Inj (Ativan Inj) (03/11/17 02:00) Cath For Specimen (03/11/17 02:35) Lorazepam Inj (Ativan Inj) (03/11/17 03:45) Lorazepam Inj (Ativan Inj) (03/11/17 03:38) Haloperidol Inj (Haldol Inj) (03/11/17 04:45) Ct Brain W/O Iv Contrast(Rout) (03/11/17 ) Ed Urine Pregnancytest Poc (03/11/17 05:36) Propofol 1000 Mg/100 Ml Inj (Diprivan 10 (03/11/17 05:57) Midazolam Inj (Versed Inj) (03/11/17 06:31) Midazolam Inj (Versed Inj) (03/11/17 06:38) Admit Order (Ed Use Only) (03/11/17 ) Vault Person / Telemetry DAMI.Q8H (03/11/17 06:39) Diet Npo (03/11/17 Breakfast) Activity Bed Rest (03/11/17 06:39) Notify Dr: Other (03/11/17 06:39) Labs Laboratory Tests Test 03/11/17 02:30 White Blood Count 15.1 TH/MM3 Red Blood Count 5.09 MIL/MM3 Hemoglobin 12.5 GM/DL Hematocrit 39.9 % Mean Corpuscular Volume 78.4 FL Mean Corpuscular Hemoglobin 24.5 PG Mean Corpuscular Hemoglobin Concent 31.3 % Red Cell Distribution Width 17.0 % Platelet Count 346 TH/MM3 Mean Platelet Volume 9.9 FL Neutrophils (%) (Auto) 56.8 % Lymphocytes (%) (Auto) 32.8 % Monocytes (%) (Auto) 8.9 % Eosinophils (%) (Auto) 0.9 % Basophils (%) (Auto) 0.6 % Neutrophils # (Auto) 8.6 TH/MM3 Lymphocytes # (Auto) 4.9 TH/MM3 Monocytes # (Auto) 1.3 TH/MM3 Eosinophils # (Auto) 0.1 TH/MM3 Basophils # (Auto) 0.1 TH/MM3 CBC Comment DIFF FINAL Differential Comment Prothrombin Time 10.5 SEC Prothromb Time International Ratio 1.0 RATIO Activated Partial Thromboplast Time 22.2 SEC Urine Color YELLOW Urine Turbidity CLEAR Urine pH 5.5 Urine Specific [place] 1.021 Urine Protein TRACE mg/dL Urine Glucose (UA) NEG mg/dL Urine Ketones TRACE mg/dL Urine Occult Blood NEG Urine Nitrite NEG Urine Bilirubin NEG Urine Urobilinogen 2.0 MG/DL Urine Leukocyte Esterase NEG Urine RBC 3 /hpf Urine WBC 1 /hpf Urine Squamous Epithelial Cells 1 /hpf Urine Hyaline Casts 47 /lpf Urine Mucus FEW /lpf Microscopic Urinalysis Comment CULT NOT INDICATED Blood Urea Nitrogen 15 MG/DL Creatinine 1.18 MG/DL Random Glucose 213 MG/DL Calcium Level 9.0 MG/DL Sodium Level 140 MEQ/L Potassium Level 4.4 MEQ/L Chloride Level 106 MEQ/L Carbon Dioxide Level 18.1 MEQ/L Anion Gap 16 MEQ/L Estimat Glomerular Filtration Rate 52 ML/MIN Salicylates Level 6.6 MG/DL Urine Opiates Screen POS Acetaminophen Level LESS THAN 2.0 MCG/ML Urine Barbiturates Screen NEG Urine Amphetamines Screen POS Urine Benzodiazepines Screen NEG Urine Cocaine Screen NEG Urine Cannabinoids Screen POS Ethyl Alcohol Level LESS THAN 3 MG/DL MDM Medical Decision Making Medical Screen Exam Complete: Yes Emergency Medical Condition: Yes Medical Record Reviewed: Yes Interpretation(s) EKG: Sinus tachycardia rate [address] elevation or injury pattern change noted Urine drug screen amphetamines marijuana opiates Last Impressions Chest X-Ray 03/11/17 0155 Signed Impressions: Service Date/Time: Saturday, March 11, 2017 02:13 - CONCLUSION: No acute cardiopulmonary disease identified. Roberto Schmitt MD Chest X-Ray 03/11/17 0000 Signed Impressions: Service Date/Time: Saturday, March 11, 2017 07:56 - CONCLUSION: 1. ETT in good position. NGT just be on the GE junction with side hole in the distal esophagus. 2. Otherwise, no acute abnormality or significant interval change. Zane Schwartz MD CBC & BMP Diagram 03/11/17 02:30 Calcium Level 9.0 Alcohol: Less than 3 [id number] hCG: Negative Differential Diagnosis Polysubstance ingestion, acute psychosis, altered mental status, metabolic disturbance, substance induced mood disorder Narrative Course Physical restraints placed to protect patient from harming herself and others; IV access obtained specimens collected and sent for resulting; patient administered Ativan 2 mg IV Patient given additional Ativan and Haldol to control agitation Patient remains agitated after fluids observation and oral doses of Ativan and a single dose of Haldol patient is not able to resolve her ingestant overdose and substance induced altered mentation/encephalopathy during her stay in the emergency department and will require admission at this time patient will be intubated and admitted to the ICU call placed to final rail cutter Briefly discussed case with who accepts patient for admission is aware of plan for intubation Dr. Armstrong final rail cutter at bedside well intubate patient due to being called to bedside of another patient. Patient is graciously accepted by the final rail cutter service Critical Care Narrative Aggregate critical care time was minutes. Time to perform other separately billable procedures was not included in the critical care time. My time did not include minutes spent treating any other patients simultaneously or on activities that did not directly contribute to the patient's treatment. The services I provided to this patient were to treat and/or prevent clinically significant deterioration that could result in: Arrhythmia, respiratory arrest, I provided critical care services requiring my management, as noted below: Chart data review, documentation time, medication orders and management, vital sign assessments/reviewing monitor data, ordering and reviewing lab tests, ordering and interpreting/reviewing x-rays and diagnostic studies, care of the patient and discussion of the patient with the admitting physicians. Physician Communication Physician Communication Discussed with final rail cutter for admission Diagnosis Primary Impression: Drug-induced psychotic disorder Additional Impressions: Toxic metabolic encephalopathy Polysubstance abuse Renal insufficiency Leukocytosis, unspecified Admitting Information Admitting Physician Requests: Admit Scripts No Active Prescriptions or Reported Meds Yari Elizondo MD Mar 11, 2017 02:39
--- NOTE | 2017-03-11 02:44 | RADRPT ---
EXAM DATE/TIME: 03/11/2017 02:13 [facility] COMPARISON: No previous studies available for comparison. INDICATIONS : Pt having hallucinations and chest pains- says feels like a heart attack MEDICAL HISTORY : Unobtainable SURGICAL HISTORY : Unobtainable ENCOUNTER: Initial ACUITY: 1 day PAIN SCORE: 9/10 LOCATION: Bilateral chest FINDINGS: Single AP view of the chest. The lungs are clear. Cardiomediastinal silhouette within normal limits. No evidence of pleural effusion or pneumothorax. CONCLUSION: No acute cardiopulmonary disease identified. Roberto Schmitt MD on March 11, 2017 at 2:42 Board Certified Radiologist. This report was verified electronically.
[2017-03-11 02:46] LABS: AUTOMATED NEUTROPHIL # 8.6 TH/MM3 (1.8-7.7); BASOPHIL # 0.1 TH/MM3 (0-0.2); BASOPHIL % 0.6 % (0.0-2.0); EOSINOPHIL # 0.1 TH/MM3 (0-0.4); EOSINOPHIL % 0.9 % (0.0-4.0); HEMATOCRIT 39.9 % (35.0-46.0); HEMOGLOBIN 12.5 GM/DL (11.6-15.3); LYMPH % 32.8 % (9.0-44.0); LYMPHOCYTE # 4.9 TH/MM3 (1.0-4.8); MEAN CELL VOLUME 78.4 FL (80.0-100.0); MEAN CORPUSCULAR HEMOGLOBIN 24.5 PG (27.0-34.0); MEAN CORPUSCULAR HGB CONC 31.3 % (32.0-36.0); MEAN PLATELET VOLUME 9.9 FL (7.0-11.0); MONO % 8.9 % (0.0-8.0); MONOCYTE # 1.3 TH/MM3 (0-0.9); NEUT % 56.8 % (16.0-70.0); PLATELET COUNT 346 TH/MM3 (150-450); RED BLOOD COUNT 5.09 MIL/MM3 (4.00-5.30); WHITE BLOOD COUNT 15.1 TH/MM3 (4.0-11.0)
[2017-03-11 02:53] LABS: BILIRUBIN, URINE NEG (NEG); BLOOD, URINE NEG (NEG); GLUCOSE,URINE NEG (NEG); HYALINE CAST, URINE 47 /lpf (RARE); KETONE, URINE TRACE mg/dL (NEG); MUCUS URINE FEW /lpf (OCC); NITRITE,URINE NEG (NEG); PH, URINE 5.5 (5.0-8.5); SQUAMOUS EPITHELIAL CELL URINE 1 /hpf (0-5); URINE COLOR YELLOW (YELLW/STRAW); URINE LEUKOCYTE ESTERASE NEG (NEG)
[2017-03-11 03:00] LABS: PROTHROMBIN TIME - PATIENT 10.5 SEC (9.8-11.6)
[2017-03-11 03:20] LABS: ACETAMINOPHEN LESS THAN 2.0 MCG/ML (10.0-30.0); BICARBONATE 18.1 MEQ/L (21.0-32.0); BLOOD UREA NITROGEN 15 MG/DL (7-18); CHLORIDE 106 MEQ/L (98-107); CREATININE 1.18 MG/DL (0.50-1.00); GLOMERULAR FILTRATION RATE 52 ML/MIN (>89); GLUCOSE,RANDOM 213 MG/DL (74-106); SODIUM (NA) 140 MEQ/L (136-145)
[2017-03-11] MEDS ORDERED: LORazepam 2 MG/ML VIAL ONE (03:38)
[2017-03-11] MEDS ORDERED: HALOPERIDOL LACTATE 5 MG/ML AMP IV PUSH ONE (04:45)
[2017-03-11] MEDS ORDERED: PROPOFOL 1000 MG/100 ML INJ 100 ML ONE (05:57)
[2017-03-11] MEDS ORDERED: MIDAZOLAM HCL 5 MG/ML VIAL (1 ML) ONE ×2 (06:31→06:38)
[2017-03-11] MEDS ORDERED: BISACODYL 10 MG SUPP RECTAL PRN (07:15)
[2017-03-11] MEDS ORDERED: MISCELLANEOUS NURSING INFORMATION XX SCH (07:15)
[2017-03-11] MEDS ORDERED: LACTULOSE SYRUP 20 GM/30 ML CUP PO PRN (07:15)
[2017-03-11] MEDS ORDERED: PROPOFOL 1000 MG/100 ML INJ 100 ML IV PRN (07:15)
[2017-03-11] MEDS ORDERED: RESP: ALBUTEROL 2.5 MG/IPRATROPIUM 0.5 MG NEB (PRN) INH (07:15)
[2017-03-11] MEDS ORDERED: POTASSIUM PHOSPHATE MONOBASIC 500 MG TAB PO/TUBE PRN (07:15)
[2017-03-11] MEDS ORDERED: CHLORHEXIDINE GLUCONATE 2 % 1 PACK (2 CLOTHS) TOP PRN (07:15)
[2017-03-11] MEDS ORDERED: ONDANSETRON HCL 4 MG/2 ML VIAL IV PUSH PRN (07:15)
[2017-03-11] MEDS ORDERED: MAGNESIUM HYDROXIDE SUSP 30 ML CUP PO PRN (07:15)
[2017-03-11] MEDS ORDERED: MAGNESIUM SULFATE INJ 4 GM in SODIUM CHLORIDE 0.9% INJ 92 ML IV PRN (07:15)
[2017-03-11] MEDS ORDERED: MAGNESIUM SULFATE INJ 2 GM in SODIUM CHLORIDE 0.9% INJ 96 ML IV PRN (07:15)
[2017-03-11] MEDS ORDERED: POTASSIUM PHOSPHATE MONOBASIC 500 MG TAB PO PRN (07:15)
[2017-03-11] MEDS ORDERED: DEXMEDETOMIDINE INJ 200 MCG in SODIUM CHLORIDE 0.9% INJ 50 ML IV PRN (07:15)
[2017-03-11] MEDS ORDERED: HALOPERIDOL LACTATE 5 MG/ML AMP IV PUSH PRN (07:15)
[2017-03-11] MEDS ORDERED: QUEtiapine FUMARATE 100 MG TAB PO SCH (07:15)
[2017-03-11] MEDS ORDERED: MAGNESIUM OXIDE 400 MG TAB PO PRN (07:15)
[2017-03-11] MEDS ORDERED: DEXTROSE 50% IN WATER 50 ML VIAL(D50) IV PUSH PRN (07:15)
[2017-03-11] MEDS ORDERED: POTASSIUM PHOSPHATE INJ 30 MMOL in SODIUM CHLOR 0.9% 250 ML INJ 250 ML IV PRN (07:15)
[2017-03-11] MEDS ORDERED: POTASSIUM CHLOR 40 MEQ PREMIX 100 ML IV-CENTRAL PRN ×2 (07:15)
[2017-03-11] MEDS ORDERED: PROPOFOL 200 MG/20 ML AMP IV ONE (07:15)
[2017-03-11] MEDS ORDERED: SENNOSIDES 8.6 MG TAB PO PRN (07:15)
[2017-03-11] MEDS ORDERED: POTASSIUM CHLOR 20 MEQ PREMIX 100 ML IV PRN ×2 (07:15)
[2017-03-11] MEDS ORDERED: fentaNYL DRIP 250 ML IV PRN (07:15)
[2017-03-11] MEDS ORDERED: SODIUM PHOSPHATE INJ 30 MMOL in SODIUM CHLOR 0.9% 250 ML INJ 240 ML IV PRN (07:15)
--- NOTE | 2017-03-11 07:21 | PD.PROCEDR ---
Procedure Note Procedure Endotracheal Intubation Diagnosis: Toxic encephalopathy Indications: Acute hypoxic and hypercarbic respiratory failure Consent: Emergent Anesthesia: Propofol 140 mg IV, Versed 10 mg IV, succinylcholine 120 mg IV Description of the Procedure: The patient was positioned in the sniffing position. Pre-oxygenation was performed using a [id number]. Anesthesia was induced via rapid sequence. A Ch #2 was used for laryngoscopy and a Grade 1 view was obtained. A 7.5 cuffed endotracheal tube was inserted atraumatically through the vocal cords. Confirmation of correct endotracheal tube placement was made by equal and bilateral breath sounds and colorimetric CO2 detection. The endotracheal tube was secured at 22 cm at the teeth. There were no immediate complications noted. The patient remained hemodynamically stable throughout the procedure. A chest x-ray has been ordered. I personally performed the procedure. Angus Lozano MD Mar 11, 2017 07:21
--- NOTE | 2017-03-11 07:21 | PD.PROCEDR ---
Procedure Note Procedure Endotracheal Intubation Diagnosis: Toxic encephalopathy Indications: Acute hypoxic and hypercarbic respiratory failure Consent: Emergent Anesthesia: Propofol 140 mg IV, Versed 10 mg IV, succinylcholine 120 mg IV Description of the Procedure: The patient was positioned in the sniffing position. Pre-oxygenation was performed using a [id number]. Anesthesia was induced via rapid sequence. A Ch #2 was used for laryngoscopy and a Grade 1 view was obtained. A 7.5 cuffed endotracheal tube was inserted atraumatically through the vocal cords. Confirmation of correct endotracheal tube placement was made by equal and bilateral breath sounds and colorimetric CO2 detection. The endotracheal tube was secured at 22 cm at the teeth. There were no immediate complications noted. The patient remained hemodynamically stable throughout the procedure. A chest x-ray has been ordered. I personally performed the procedure. Angus Lozano MD Mar 11, 2017 07:21
--- NOTE | 2017-03-11 07:21 | PD.PROCEDR ---
Procedure Note Procedure Endotracheal Intubation Diagnosis: Toxic encephalopathy Indications: Acute hypoxic and hypercarbic respiratory failure Consent: Emergent Anesthesia: Propofol 140 mg IV, Versed 10 mg IV, succinylcholine 120 mg IV Description of the Procedure: The patient was positioned in the sniffing position. Pre-oxygenation was performed using a [id number]. Anesthesia was induced via rapid sequence. A Ch #2 was used for laryngoscopy and a Grade 1 view was obtained. A 7.5 cuffed endotracheal tube was inserted atraumatically through the vocal cords. Confirmation of correct endotracheal tube placement was made by equal and bilateral breath sounds and colorimetric CO2 detection. The endotracheal tube was secured at 22 cm at the teeth. There were no immediate complications noted. The patient remained hemodynamically stable throughout the procedure. A chest x-ray has been ordered. I personally performed the procedure. Angus Lozano MD Mar 11, 2017 07:21
[2017-03-11] MEDS ORDERED: SUCCINYLCHOLINE CHLORIDE 200 MG/10 ML VIAL IV PUSH ONE (07:30)
--- NOTE | 2017-03-11 07:31 | HHI.HP ---
HPI Service Critical Care Medicine Primary Care Physician No Primary Care Physician Admission Diagnosis polysubstance overdose; psychosis Diagnosis: Chief Complaint: altered mental status Travel History International Travel<30 Days: No Contact w/Intl Traveler <30 Da: No Traveled to Known Affected Are: No History of Present Illness This is a 36-year-old female who presents as a drug overdose and intoxication. Her urine drug screen is positive for amphetamines, opiates, cannabinoids. Per report she took Flakka and heroin. Unfortunately, the patient is a RASS +2 and is completely altered and unable to answer additional questions. She was harmed herself due to her severe agitated delirium despite conservative therapy with benzodiazepines, and her airway is becoming compromised. She was intubated , see separate procedure note for details. No additional information is available from patient due to her clinical condition. Up to evidence demonstrates early acute kidney injury and a reactive leukocytosis. Review of Systems ROS Limitations: Clinical Condition, Intoxication, Intubated, Altered Mental Status Past Family Social History Allergies: Coded Allergies: amoxicillin (Unverified Allergy, Intermediate, SEVERE STOMACH CRAMPING, ) Past Medical History Unknown and unobtainable secondary to clinical condition of patient Past Surgical History Unknown and unobtainable secondary to clinical condition of patient Reported Medications Unknown and unobtainable secondary to clinical condition of patient Active Ordered Medications See MAR Family History Unknown and unobtainable secondary to clinical condition of patient Social History Unknown and unobtainable secondary to clinical condition of patient Physical Exam Vital Signs Vital Signs Date Time Temp Pulse Resp B/P (MAP) Pulse Ox O2 Delivery O2 Flow Rate FiO2 03/11/17 06:59 94 14 124/59 (80) 100 Ventilator 100 03/11/17 06:53 108 14 121/58 (79) 100 Ventilator 100 03/11/17 06:38 118 18 129/63 (85) 100 03/11/17 06:35 122 20 93/54 (67) 100 15.00 03/11/17 05:21 133 24 128/70 (89) 100 Room Air 03/11/17 02:07 99 Room Air 03/11/17 01:54 99.2 142 24 156/78 (104) 98 Physical Exam GENERAL: Young female, lying in bed, severely agitated, writhing HEENT: Normocephalic. Atraumatic. Pupils equal, round, reactive, conjugate. Mucous membranes are dry NECK: Trachea is midline. There is no JVD. CHEST: Tachypneic. Labored. CARDIOVASCULAR: Tachycardic rate, regular rhythm. Sinus by telemetry hypertensive with systolics in the 140s ABDOMEN: Soft, nontender, nondistended. No guarding. MUSCULOSKELETAL: Pulses 2+. No peripheral edema. NEUROLOGICAL: RASS +2. CAM +. Moves all extremities. No focal deficits. Does not Follow commands. Laboratory Laboratory Tests Test 03/11/17 02:30 White Blood Count 15.1 Red Blood Count 5.09 Hemoglobin 12.5 Hematocrit 39.9 Mean Corpuscular Volume 78.4 Mean Corpuscular Hemoglobin 24.5 Mean Corpuscular Hemoglobin Concent 31.3 Red Cell Distribution Width 17.0 Platelet Count 346 Mean Platelet Volume 9.9 Neutrophils (%) (Auto) 56.8 Lymphocytes (%) (Auto) 32.8 Monocytes (%) (Auto) 8.9 Eosinophils (%) (Auto) 0.9 Basophils (%) (Auto) 0.6 Neutrophils # (Auto) 8.6 Lymphocytes # (Auto) 4.9 Monocytes # (Auto) 1.3 Eosinophils # (Auto) 0.1 Basophils # (Auto) 0.1 CBC Comment DIFF FINAL Differential Comment Prothrombin Time 10.5 Prothromb Time International Ratio 1.0 Activated Partial Thromboplast Time 22.2 Urine Color YELLOW Urine Turbidity CLEAR Urine pH 5.5 Urine Specific [place] 1.021 Urine Protein TRACE Urine Glucose (UA) NEG Urine Ketones TRACE Urine Occult Blood NEG Urine Nitrite NEG Urine Bilirubin NEG Urine Urobilinogen 2.0 Urine Leukocyte Esterase NEG Urine RBC 3 Urine WBC 1 Urine Squamous Epithelial Cells 1 Urine Hyaline Casts 47 Urine Mucus FEW Microscopic Urinalysis Comment CULT NOT INDICATED Blood Urea Nitrogen 15 Creatinine 1.18 Random Glucose 213 Calcium Level 9.0 Sodium Level 140 Potassium Level 4.4 Chloride Level 106 Carbon Dioxide Level 18.1 Anion Gap 16 Estimat Glomerular Filtration Rate 52 Salicylates Level 6.6 Urine Opiates Screen POS Acetaminophen Level LESS THAN 2.0 Urine Barbiturates Screen NEG Urine Amphetamines Screen POS Urine Benzodiazepines Screen NEG Urine Cocaine Screen NEG Urine Cannabinoids Screen POS Ethyl Alcohol Level LESS THAN 3 Result Diagram: 03/11/170 03/11/17229 Imaging Last Impressions Chest X-Ray 03/11/17 0151 Signed Impressions: Service Date/Time: Saturday, March 11, 2017 02:13 - CONCLUSION: No acute cardiopulmonary disease identified. Roberto Schmitt MD Caprini VTE Risk Assessment Caprini VTE Risk Assessment: Mod/High Risk (score >= 2) Caprini Risk Assessment Model Point Value = 1 Point Value = 2 Point Value = 3 Point Value = 5 Age 41-60 Minor surgery BMI > 25 kg/m2 Swollen legs Varicose veins or History of unexplained or recurrent spontaneous Oral contraceptives or hormone replacement Sepsis (< 1 month) Serious lung disease, including pneumonia (< 1 month) Abnormal pulmonary function Acute myocardial infarction Congestive heart failure (< 1 month) History of inflammatory bowel disease Medical patient at bed rest Age 61-74 Arthroscopic surgery Major open surgery (> 45 min) Laparoscopic surgery (> 45 min) Malignancy Confined to bed (> 72 hours) Immobilizing plaster cast Central venous access Age >= 75 History of VTE Family history of VTE Factor V Leiden Prothrombin [id number] Lupus anticoagulant Anticardiolipin antibodies Elevated serum homocysteine Heparin-induced thrombocytopenia Other congenital or acquired thrombophilia Stroke (< 1 month) Elective arthroplasty Hip, pelvis, or leg fracture Acute spinal cord injury (< 1 month) Prophylaxis Regimen Total Risk Factor Score Risk Level Prophylaxis Regimen 0-1 Low Early ambulation 2 Moderate Order ONE of the following: *Sequential Compression Device (SCD) *Heparin 5000 units SQ BID 3-4 Higher Order ONE of the following medications: *Heparin 5000 units SQ TID *Enoxaparin/Lovenox 40 mg SQ daily (WT < 150 kg, CrCl > 30 mL/min) *Enoxaparin/Lovenox 30 mg SQ daily (WT < 150 kg, CrCl > 10-29 mL/min) *Enoxaparin/Lovenox 30 mg SQ BID (WT < 150 kg, CrCl > 30 mL/min) AND/OR *Sequential Compression Device (SCD) 5 or more Highest Order ONE of the following medications: *Heparin 5000 units SQ TID (Preferred with Epidurals) *Enoxaparin/Lovenox 40 mg SQ daily (WT < 150 kg, CrCl > 30 mL/min) *Enoxaparin/Lovenox 30 mg SQ daily (WT < 150 kg, CrCl > 10-29 mL/min) *Enoxaparin/Lovenox 30 mg SQ BID (WT < 150 kg, CrCl > 30 mL/min) AND *Sequential Compression Device (SCD) Assessment and Plan Assessment and Plan Assessment: 36-year-old female presents with drug overdose with reported Flakka and Heroin with associated severe Toxic Encephaloapthy and Life-threatening Agitated Delirium. Critically ill at this time with early organ dysfunction from overdose as well as her overdose and agitation which is life-threatening. Plan by systems: Neurologic: Toxic encephalopathy Heroin overdose Flakka Overdose Agitated Delirium - RASS goal -2 - propofol/fentanyl - add precedex when ready to wean - frequent neuro checks - oxycodone 10mg po q4h - seroquel 100mg po q8h - haldol 5mg iv q4h prn for breakthrough agitation - clonidine 0.3mg po q8h Respiratory: Acute hypoxic and hypercarbic respiratory failure - vent bundle - hob at 30 degrees - nebs - wean fio2 for goal spo2 > 90% - start SBTs when encephalopathy resolves Cardiovascular: Sinus tachycardia - secondary to drug overdose - clonidine 0.3mg po q8hr Renal: Acute kidney injury - [place] - monitor uop - daily bmp - check serial CK to monitor for Rhabdo -- Strict I/Os FEN/GI: Acute intravascular volume depletion Acute protein calorie malnutrition- mild Hypokalemia - NPO. start tube feeds if encephalopathy does not resolve - ICU electrolyte protocol - daily BMP - mivf Heme/ID: Reactive Leukocytosis - no infectious etiology suspected at this time - daily cbc Endocrine: Hyperglycemia of critical illness -- SSI, med scale, q6h Prophylaxis: GI Prophylaxis No evidence based indication for GI prophylaxis. DVT Prophylaxis -- SCDs Lovenox Lines: Peripheral IVs [place] Dispo: ICU. Critically ill. This patient remains critically ill with one or more organ systems which are or may become a threat to life. I have spent in excess of 41 minutes discontinuously in the care and management of this patient. This time is exclusive of procedures, and includes, but is not limited to, evaluation of the patient, review of the medical record, discussions with family, consultants, nursing staff, or respiratory therapy, and documentation in the medical record. Angus Lozano MD Mar 11, 2017 07:31
[2017-03-11] MEDS: CHLORHEXIDINE 0.12% (ORAL KIT) 15 ML CUP MT SCH ×2 (08:00→20:00)
[2017-03-11] MEDS ORDERED: LACTATED RINGER'S 1000 ML INJ 1,000 ML IV SCH (08:00)
[2017-03-11] MEDS: oxyCODONE HCL ORAL CONC 5 MG/0.25 ML SYRINGE PO SCH ×2 (08:00→12:15)
[2017-03-11] MEDS: ENOXAPARIN SODIUM 40 MG/0.4 ML SYRINGE SQ SCH (08:00)
[2017-03-11] MEDS ORDERED: DEXTROSE 10% INJ 1,000 ML IV SCH (08:00)
--- NOTE | 2017-03-11 08:12 | RADRPT ---
EXAM DATE/TIME: 03/11/2017 07:56 [facility] COMPARISON: CHEST SINGLE AP, March 11, 2017, 2:13. INDICATIONS : Post Intubation MEDICAL HISTORY : Unobtainable SURGICAL HISTORY : Unobtainable ENCOUNTER: Subsequent ACUITY: 1 day PAIN SCORE: Non-responsive. LOCATION: Bilateral chest FINDINGS: ETT is approximately 2.5 cm above the zuri. NGT is just beyond the GE junction with side hole in th e distal esophagus. No significant focal new pleural or parenchymal opacities. Cardioediastinal conto urs are stable. Remainder of exam is unchanged. CONCLUSION: 1. ETT in good position. NGT just be on the GE junction with side hole in the distal esophagus. 2. Otherwise, no acute abnormality or significant interval change. Zane Schwartz MD on March 11, 2017 at 8:09 Board Certified Radiologist. This report was verified electronically.
--- NOTE | 2017-03-11 08:12 | RADRPT ---
EXAM DATE/TIME: 03/11/2017 07:56 [facility] COMPARISON: CHEST SINGLE AP, March 11, 2017, 2:13. INDICATIONS : Post Intubation MEDICAL HISTORY : Unobtainable SURGICAL HISTORY : Unobtainable ENCOUNTER: Subsequent ACUITY: 1 day PAIN SCORE: Non-responsive. LOCATION: Bilateral chest FINDINGS: ETT is approximately 2.5 cm above the zuir. NGT is just beyond the GE junction with side hole in th e distal esophagus. No significant focal new pleural or parenchymal opacities. Cardioediastinal conto urs are stable. Remainder of exam is unchanged. CONCLUSION: 1. ETT in good position. NGT just be on the GE junction with side hole in the distal esophagus. 2. Otherwise, no acute abnormality or significant interval change. Zane Schwartz MD on March 11, 2017 at 8:09 Board Certified Radiologist. This report was verified electronically.
--- NOTE | 2017-03-11 08:33 | RADRPT ---
EXAM DATE/TIME: 03/11/2017 08:13 [place] COMPARISON: No previous studies available for comparison. INDICATIONS : Altered mental status. RADIATION DOSE: 56.77 CTDIvol (mGy) MEDICAL HISTORY : Hypertension. SURGICAL HISTORY : Non-responsive. ENCOUNTER: Initial ACUITY: 1 day PAIN SCALE: Non-responsive LOCATION: cranial TECHNIQUE: Multiple contiguous axial images were obtained of the head. Using automated exposure control and adj ustment of the mA and/or kV according to patient size, radiation dose was kept as low as reasonably a chievable to obtain optimal diagnostic quality images. DICOM format image data is available electro nically for review and comparison. FINDINGS: CEREBRUM: The ventricles are normal for age. No evidence of midline shift, mass lesion, hemorrhage or acute in farction. No extra-axial fluid collections are seen. POSTERIOR FOSSA: The cerebellum and brainstem are intact. The 4th ventricle is midline. The cerebellopontine angle i s unremarkable. EXTRACRANIAL: The visualized portion of the orbits is intact. SKULL: The calvaria is intact. No evidence of skull fracture. CONCLUSION: 1. No acute intracranial abnormality. Zane Schwartz MD on March 11, 2017 at 8:30 Board Certified Radiologist. This report was verified electronically.
[2017-03-11] MEDS: DOCUSATE SODIUM 50 MG/SENNA 8.6 MG TAB PO SCH ×2 (09:00→20:44)
[2017-03-11] MEDS ORDERED: RESP: ALBUTEROL 2.5 MG/IPRATROPIUM 0.5 MG NEB (SCH) INH (10:00)
[2017-03-11] MEDS ORDERED: INSULIN NovoLIN REGULAR SUPPLEMENTAL SCALE SQ SCH (12:00)
[2017-03-11] MEDS: cloNIDine HCL 0.3 MG TAB PO SCH ×2 (14:00→21:35)
--- NOTE | 2017-03-11 18:17 | PD.PSY.CON ---
Provisional Diagnosis Admission Date Mar 11, 2017 at 06:41 [place]. Substance abuse mood disorder; polysubstance use disorder History of Present Illness Service Psychiatry Consult Requested By Dr. Lozano Reason for Consult [place] act by police department due to drug overdose Primary Care Physician No Primary Care Physician HPI Patient is a 62-year-old woman, domiciled with a past psychiatric history of polysubstance use disorder including methamphetamines, Flakka, opiates, cannabinoids, with one previous psychiatric admission in 2016 at [place] was admitted to the medical floor due to recent recreational substance intoxication and overdose which resulted in respiratory depression requiring intubation, acute kidney injury and reactive leukocytosis who now has been extubated and psychiatry consulted for evaluation. Discussion with nursing staff mentioned the patient initially wanted to leave AMA stated that she had ago because her child, denies DTs depressive symptoms and denied having had suicidal ideations or recent suicide attempt via overdose. Patient found lying in hospital bed guarded suppression cooperative interview today. Patient noted to be slightly irritable and noted to be slightly somnolent throughout interview had to be woken up several times to continue interview. Patient denies any current outpatient psychiatric follow-up, although to be slightly irritable when asked about her current substance use and stated "nobody cares if I do drugs". Patient denies any depressive, anxiety or psychotic symptoms at this time patient adamantly denies having had suicidal ideations or recent overdose with recreational drugs as a suicide attempt. Patient this time agrees to continue medical treatment for now and agrees with medical follow-up on stepdown unit and no longer mentions wanting to leave AMA. Past Family Social History Coded Allergies: amoxicillin (Unverified Allergy, Intermediate, SEVERE STOMACH CRAMPING, ) No Active Prescriptions or Reported Meds Current Medications Medications (Trade) Dose Ordered Sig/Brent Route Start Time Stop Time Status Last Admin (NS Flush) 2 ml UNSCH PRN IVF 03/11/17 02:00 (Haldol Inj) 5 mg Q4H PRN IV PUSH 03/11/17 07:15 (Catapres) 0.3 mg Q8HR PO 03/11/17 07:15 03/11/17 14:00 Dexmedetomidine HCl 200 mcg/ Sodium Chloride 52 ml @ 15.6 mls/hr TITRATE PRN IV 03/11/17 07:15 (Mag-Ox) 800 mg UNSCH PRN PO 03/11/17 07:15 Magnesium Sulfate 4 gm/Sodium Chloride 100 ml @ 50 mls/hr UNSCH PRN IV 03/11/17 07:15 Magnesium Sulfate 2 gm/Sodium Chloride 100 ml @ 50 mls/hr UNSCH PRN IV 03/11/17 07:15 Potassium Chloride 100 ml @ 50 mls/hr Q2H PRN IV 03/11/17 07:15 Potassium Chloride 100 ml @ 50 mls/hr Q2H PRN IV 03/11/17 07:15 Potassium Chloride 100 ml @ 50 mls/hr Q2H PRN IV-CENTRAL 03/11/17 07:15 Potassium Chloride 100 ml @ 25 mls/hr UNSCH PRN IV-CENTRAL 03/11/17 07:15 (K-Phos) 2,000 mg Q4H PRN PO 03/11/17 07:15 (K-Phos) 2,000 mg UNSCH PRN PO/TUBE 03/11/17 07:15 Potassium Phosphate 30 mmol/ Sodium Chloride 260 ml @ 42 mls/hr UNSCH PRN IV 03/11/17 07:15 Sodium Phosphate 30 mmol/Sodium Chloride 250 ml @ 42 mls/hr UNSCH PRN IV 03/11/17 07:15 (Peridex 0.12% Liq) 15 ml BID@08,20 MT 03/11/17 08:00 03/11/17 08:00 (D50w (Vial) Inj) 25 ml UNSCH PRN IV PUSH 03/11/17 07:15 (Duoneb Neb) 1 ampule Q2HR NEB PRN INH 03/11/17 07:15 (Zofran Inj) 4 mg Q6H PRN IV PUSH 03/11/17 07:15 (Lovenox Inj) 40 mg Q24H SQ 03/11/17 08:00 03/11/17 08:00 Miscellaneous Information 1 Q361D XX 03/11/17 07:15 (Chlorhexidine 2% Cloth) 3 pack Taper DAILY@04 TOP 03/12/17 04:00 03/08/18 03:59 (Chlorhexidine 2% Cloth) 3 pack UNSCH PRN TOP 03/11/17 07:15 (Talya-Colace) 1 tab BID PO 03/11/17 09:00 03/11/17 09:00 (Milk Of Magnesia Liq) 30 ml Q12H PRN PO 03/11/17 07:15 (Senokot) 17.2 mg Q12H PRN PO 03/11/17 07:15 (Dulcolax Supp) 10 mg DAILY PRN RECTAL 03/11/17 07:15 (Lactulose Liq) 30 ml DAILY PRN PO 03/11/17 07:15 (Roxicodone) 5 mg Q4H PRN PO 03/11/17 14:00 Physical Exam Vital Signs Vital Signs Date Time Temp Pulse Resp B/P (MAP) Pulse Ox O2 Delivery O2 Flow Rate FiO2 03/11/17 16:00 97.9 73 16 122/77 (92) 99 03/11/17 12:45 Nasal Cannula 3.00 03/11/17 11:30 40 I/O 03/11/17 03/11/17 03/12/17 08:00 16:00 00:00 Intake Total 1000 ml 656 ml Balance 1000 ml 656 ml Lab Results Test 03/11/17 02:30 03/11/17 07:48 03/11/17 11:40 03/11/17 16:05 White Blood Count 15.1 TH/MM3 Red Blood Count 5.09 MIL/MM3 Hemoglobin 12.5 GM/DL Hematocrit 39.9 % Mean Corpuscular Volume 78.4 FL Mean Corpuscular Hemoglobin 24.5 PG Mean Corpuscular Hemoglobin Concent 31.3 % Red Cell Distribution Width 17.0 % Platelet Count 346 TH/MM3 Mean Platelet Volume 9.9 FL Neutrophils (%) (Auto) 56.8 % Lymphocytes (%) (Auto) 32.8 % Monocytes (%) (Auto) 8.9 % Eosinophils (%) (Auto) 0.9 % Basophils (%) (Auto) 0.6 % Neutrophils # (Auto) 8.6 TH/MM3 Lymphocytes # (Auto) 4.9 TH/MM3 Monocytes # (Auto) 1.3 TH/MM3 Eosinophils # (Auto) 0.1 TH/MM3 Basophils # (Auto) 0.1 TH/MM3 CBC Comment DIFF FINAL Differential Comment Prothrombin Time 10.5 SEC Prothromb Time International Ratio 1.0 RATIO Activated Partial Thromboplast Time 22.2 SEC Urine Color YELLOW Urine Turbidity CLEAR Urine pH 5.5 Urine Specific [place] 1.021 Urine Protein TRACE mg/dL Urine Glucose (UA) NEG mg/dL Urine Ketones TRACE mg/dL Urine Occult Blood NEG Urine Nitrite NEG Urine Bilirubin NEG Urine Urobilinogen 2.0 MG/DL Urine Leukocyte Esterase NEG Urine RBC 3 /hpf Urine WBC 1 /hpf Urine Squamous Epithelial Cells 1 /hpf Urine Hyaline Casts 47 /lpf Urine Mucus FEW /lpf Microscopic Urinalysis Comment CULT NOT INDICATED Blood Urea Nitrogen 15 MG/DL Creatinine 1.18 MG/DL Random Glucose 213 MG/DL Calcium Level 9.0 MG/DL Sodium Level 140 MEQ/L Potassium Level 4.4 MEQ/L Chloride Level 106 MEQ/L Carbon Dioxide Level 18.1 MEQ/L Anion Gap 16 MEQ/L Estimat Glomerular Filtration Rate 52 ML/MIN Salicylates Level 6.6 MG/DL Urine Opiates Screen POS Acetaminophen Level LESS THAN 2.0 MCG/ML Urine Barbiturates Screen NEG Urine Amphetamines Screen POS Urine Benzodiazepines Screen NEG Urine Cocaine Screen NEG Urine Cannabinoids Screen POS Ethyl Alcohol Level LESS THAN 3 MG/DL Blood Gas Puncture Site LT RADIAL Blood Gas Patient Temperature 98.6 Blood Gas HCO3 19 mmol/L Blood Gas Base Excess -6.2 mmol/L Blood Gas Oxygen Saturation 98 % Arterial Blood pH 7.34 Arterial Blood Partial Pressure CO2 35 mmHg Arterial Blood Partial Pressure O2 574 mmHG Arterial Blood Oxygen Content 15.1 Vol % Arterial Blood Carboxyhemoglobin 0.6 % Arterial Blood Methemoglobin 0.9 % Blood Gas Hemoglobin 9.8 G/DL Oxygen Delivery Device VENTILATOR Blood Gas Ventilator Setting AC/VT450/R14/P5 Blood Gas Inspired Oxygen 100 % Total Creatine Kinase 2801 U/L 2781 U/L Creatine Kinase MB 6.3 NG/ML 6.0 NG/ML Creatine Kinase MB % 0.2 % 0.2 % Mental Status Examination Appearance: Disheveled Consciousness: Somnolent (slightly) Orientation: Person, Place Speech: Other (loud at times) Language: Adequate Fund of Knowledge: Adequate Attention and Concentration: Other (noted to be slightly somnolent at times but able to wake up for interview) Memory: Unremarkable Mood: Irritable Affect: Irritable Thought Process & Associations: Intact, Linear Thought Content: Appropriate Hallucination Type: None Delusion Type: None Suicidal Ideation: No Suicidal Plan: No Suicidal Intention: No Homicidal Ideation: No Homicidal Plan: No Homicidal Intention: No Insight: Fair Judgment: Impulsive Assessment & Plan Problem List: (1) Polysubstance abuse ICD Codes: F19.10 - Other psychoactive substance abuse, uncomplicated Status: Acute Assessment & Plan Patient is a 36 year woman with extensive history of polysubstance use , one remote psychiatric admission related to substance intoxication, who was admitted to the medical floor due to recreational substance overdose where she was found to be positive for multiple illegal substances which she required intubation currently medically treated for acute kidney injury and reactive leukocytosis. Patient at this time denies any mood or psychotic symptoms, denies any suicidal ideations and overdose likely unintentional due to her history of some substance intoxication and use. Patient psychiatrically clear at this time, Hurd act will be lifted. Patient does not have any symptoms to require further psychiatric intervention but would benefit from referral to rehabilitation program for substance use upon medical clearance at discharge. Consult appreciated. Jonh De Luna MD Mar 11, 2017 18:17
[2017-03-12] VITALS: BP 108/58; PULSE 85; RESP 17; TEMP 97.8; O2SAT 99
[2017-03-12 04:00] VITALS: BP 109/53; PULSE 73; RESP 18; TEMP 98; O2SAT 98
[2017-03-12] MEDS ORDERED: CHLORHEXIDINE GLUCONATE 2 % 1 PACK (2 CLOTHS) TOP SCH (04:00)
[2017-03-12] MEDS: cloNIDine HCL 0.3 MG TAB PO SCH (06:04)
[2017-03-12 08:00] VITALS: BP 98/52; PULSE 79; RESP 18; TEMP 98.3; O2SAT 93
[2017-03-12] MEDS: ENOXAPARIN SODIUM 40 MG/0.4 ML SYRINGE SQ SCH (08:00)
[2017-03-12 08:20] LABS: HEMATOCRIT 35.6 % (35.0-46.0); HEMOGLOBIN 11.3 GM/DL (11.6-15.3); MEAN CELL VOLUME 77.6 FL (80.0-100.0); MEAN CORPUSCULAR HEMOGLOBIN 24.6 PG (27.0-34.0); MEAN CORPUSCULAR HGB CONC 31.7 % (32.0-36.0); MEAN PLATELET VOLUME 10.2 FL (7.0-11.0); PLATELET COUNT 193 TH/MM3 (150-450); RED BLOOD COUNT 4.59 MIL/MM3 (4.00-5.30); RED CELL DISTRIBUTION WIDTH 17.5 % (11.6-17.2); WHITE BLOOD COUNT 7.1 TH/MM3 (4.0-11.0)
[2017-03-12 08:49] LABS: BICARBONATE 21.6 MEQ/L (21.0-32.0); CREATININE 0.56 MG/DL (0.50-1.00)
--- NOTE | 2017-03-12 09:24 | HHI.DS ---
Discharge Summary Admission Date Mar 11, 2017 at 06:41 Discharge Date: Mar 12, 2017 Admitting Diagnosis polysubstance overdose; psychosis (1) Amphetamine adverse reaction ICD Code: T43.625A - Adverse effect of amphetamines, initial encounter Status: Acute (2) Polysubstance abuse ICD Code: F19.10 - Other psychoactive substance abuse, uncomplicated Status: Acute (3) Drug-induced psychotic disorder ICD Code: F19.959 - Other psychoactive substance use, unspecified with psychoactive substance-induced psychotic disorder, unspecified Status: Acute (4) Toxic metabolic encephalopathy ICD Code: G92 - Toxic encephalopathy Status: Acute (5) Renal insufficiency ICD Code: N28.9 - Disorder of kidney and ureter, unspecified Status: Acute Procedures 03/11 - intubation Brief History This is a 36-year-old female who presents as a drug overdose and intoxication. Her urine drug screen is positive for amphetamines, opiates, cannabinoids. Per report she took Flakka and heroin. Unfortunately, the patient is a RASS +2 and is completely altered and unable to answer additional questions. She was harmed herself due to her severe agitated delirium despite conservative therapy with benzodiazepines, and her airway is becoming compromised. She was intubated , see separate procedure note for details. No additional information is available from patient due to her clinical condition. Up to evidence demonstrates early acute kidney injury and a reactive leukocytosis. CBC/BMP: 03/12/17 0600 03/12/17 0600 Significant Findings Laboratory Tests Test 03/11/17 02:30 03/11/17 07:48 03/11/17 11:40 03/11/17 16:05 White Blood Count 15.1 TH/MM3 (4.0-11.0) Mean Corpuscular Volume 78.4 FL (80.0-100.0) Mean Corpuscular Hemoglobin 24.5 PG (27.0-34.0) Mean Corpuscular Hemoglobin Concent 31.3 % (32.0-36.0) Monocytes (%) (Auto) 8.9 % (0.0-8.0) Neutrophils # (Auto) 8.6 TH/MM3 (1.8-7.7) Lymphocytes # (Auto) 4.9 TH/MM3 (1.0-4.8) Monocytes # (Auto) 1.3 TH/MM3 (0-0.9) Activated Partial Thromboplast Time 22.2 SEC (24.3-30.1) Urine Ketones TRACE mg/dL (NEG) Urine Mucus FEW /lpf (OCC) Creatinine 1.18 MG/DL (0.50-1.00) Random Glucose 213 MG/DL (74-106) Carbon Dioxide Level 18.1 MEQ/L (21.0-32.0) Anion Gap 16 MEQ/L (5-15) Estimat Glomerular Filtration Rate 52 ML/MIN (>89) Urine Opiates Screen POS (NEG) Acetaminophen Level LESS THAN 2.0 MCG/ML Urine Amphetamines Screen POS (NEG) Urine Cannabinoids Screen POS (NEG) Blood Gas HCO3 19 mmol/L (22-26) Blood Gas Base Excess -6.2 mmol/L (-2-2) Arterial Blood pH 7.34 (7.380-7.420) Arterial Blood Partial Pressure CO2 35 mmHg (38-42) Arterial Blood Partial Pressure O2 574 mmHG (61-120) Blood Gas Hemoglobin 9.8 G/DL (12.0-16.0) Total Creatine Kinase 2801 U/L (26-192) 2781 U/L (26-192) Creatine Kinase MB 6.3 NG/ML (0.5-3.6) 6.0 NG/ML (0.5-3.6) Test 03/11/17 22:00 03/12/17 06:00 Total Creatine Kinase 2001 U/L (26-192) Creatine Kinase MB 5.0 NG/ML (0.5-3.6) Hemoglobin 11.3 GM/DL (11.6-15.3) Mean Corpuscular Volume 77.6 FL (80.0-100.0) Mean Corpuscular Hemoglobin 24.6 PG (27.0-34.0) Mean Corpuscular Hemoglobin Concent 31.7 % (32.0-36.0) Red Cell Distribution Width 17.5 % (11.6-17.2) Random Glucose 53 MG/DL (74-106) Calcium Level 8.0 MG/DL (8.5-10.1) Chloride Level 110 MEQ/L (98-107) PE at Discharge gen: awake, alert, oriented, no acute distress. heent: perrl. eomi. mmm. neck: no jvd. trachea midline. chest: unlabored. room air. cv: rrr. abd: soft, nt, nd. extr: no edema. neuro: intact. rass 0. fc x 4. Hospital Course patient admitted with amphetamine, danial, heroin overdose reportedly. intubated for severe agitated delirium. this resolved and she was extubated 03/11. also admitted with dehydration and acute kidney injury, both of which resolved with ivf. now tolerating diet and renal injury resolved. rhabdo stable with downtrending CK. counseled to stop doing illicit drugs. safe to be discharged home. Pt Condition on Discharge: Good Discharge Disposition: Discharge Home Discharge Instructions DIET: Follow Instructions for: As Tolerated, No Restrictions Additional Diet Instructions: counseled to drink lots of fluids and keep hydrated. Activities you can perform: Regular-No Restrictions Angus Lozano MD Mar 12, 2017 09:24
[2017-03-12] MEDS: DOCUSATE SODIUM 50 MG/SENNA 8.6 MG TAB PO SCH (09:31)
--- NOTE | 2017-03-12 11:43 | EKG ---
Date Performed: 03/11/2017 Time Performed: 02:09:49 PTAGE: 36 years EKG: SINUS TACHYCARDIA WITH SHORT AL INTERVAL ABNORMAL RHYTHM ECG INTERPRETATION BASED ON A DEFA ULT AGE OF 42 YEARS NO PREVIOUS TRACING DOCTOR: Edwin Arevalo Interpretating Date/Time 03/12/2017 11:41:42
--- NOTE | 2017-03-12 11:43 | EKG ---
Date Performed: 03/11/2017 Time Performed: 02:09:49 PTAGE: 36 years EKG: SINUS TACHYCARDIA WITH SHORT ME INTERVAL ABNORMAL RHYTHM ECG INTERPRETATION BASED ON A DEFA ULT AGE OF 42 YEARS NO PREVIOUS TRACING DOCTOR: Edwin Arevalo Interpretating Date/Time 03/12/2017 11:41:42
--- NOTE | 2017-03-12 11:43 | EKG ---
Date Performed: 03/11/2017 Time Performed: 02:09:49 PTAGE: 36 years EKG: SINUS TACHYCARDIA WITH SHORT NV INTERVAL ABNORMAL RHYTHM ECG INTERPRETATION BASED ON A DEFA ULT AGE OF 42 YEARS NO PREVIOUS TRACING DOCTOR: Edwin Arevalo Interpretating Date/Time 03/12/2017 11:41:42
== END 2017-03-12 11:36 | disposition home or self-care (01) | DRG 917 ==
LOC: NEPC 01:47 → NEDA 06:41 → N03B 08:44 → N04A 22:23
PROVIDERS: ADMIT Internal Medicine Critical Care Medicine; ATTEND Internal Medicine Critical Care Medicine
PROC: 5A1935Z Respiratory Ventilation, Less than 24 Consecutive Hours (ICD-10-PCS; principal; 2017-03-11)
PROC: 0BH17EZ Insertion of Endotracheal Airway into Trachea, Via Natural or Artificial Opening (ICD-10-PCS; 2017-03-11)
DX: T40.1X1A Poisoning by heroin, accidental (unintentional), initial encounter (principal); G92 Toxic encephalopathy; J96.01 Acute respiratory failure with hypoxia; J96.02 Acute respiratory failure with hypercapnia; N17.9 Acute kidney failure, unspecified; F19.121 Other psychoactive substance abuse with intoxication delirium; E46 Unspecified protein-calorie malnutrition; T43.621A Poisoning by amphetamines, accidental (unintentional), initial encounter; F19.159 Other psychoactive substance abuse with psychoactive substance-induced psychotic disorder, unspecified; R00.0 Tachycardia, unspecified; E87.6 Hypokalemia; R73.9 Hyperglycemia, unspecified; I10 Essential (primary) hypertension; M79.7 Fibromyalgia; E86.0 Dehydration; Z78.1 Physical restraint status
CPT/HCPCS: 31500; 36600; 70450; 71010; 80048; 80307; 81001; 82550; 82552; 82805; 84703; 85025; 85027; 85610; 85730; 93005; 94002; J0330; J1630; J1650; J2060; J2250; J7030; J7120